=== PATIENT | male | born 1955 | race Caucasian/White ===

== ENCOUNTER 2022-07-13 15:05 | Inpatient (IN) | payer BC, MEDICARE, SELFPAY ==
[2022-07-13 15:13] VITALS: BP 133/85; PULSE 89; RESP 24; TEMP 36.1; O2SAT 100; BMI 22.2
--- NOTE | 2022-07-13 15:41 | ED.ABDPAIN ---
HPI - Abdominal Pain General Time Seen by Provider: 15:41 Date Seen: 07/13/22 Chief Complaint: Abdominal Pain Stated Complaint: Abdominal pain Time Seen by Provider: 07/13/22 15:35 Source: patient and RN notes reviewed Mode of arrival: ambulatory Limitations: no limitations History of Present Illness HPI narrative: Patient is a 67-year-old male coming in with abdominal pain. I come into the room and he is late on his right side on the end of the ER bed curled up. He states he has found little comfort that way. This started about 3 days ago. He is still having bowel movements and passing gas. He is hungry but afraid to eat, worried that there could be an obstruction. There has been some brief waves of what sounds like nausea. No respiratory symptoms. He has maybe urinating a little bit more frequently but no dysuria or hematuria. No fevers. His notes all he wants to do is lie on the floor. He is adamant that this is not coming from his back. He does feel that the right flank area but it seems to radiate from the abdomen into the right flank. He has never had any kidney stones but his daughter does. He has had 18 in of his colon removed and his appendix at that time for ulcerative colitis. He states it was obstructed. His pain is quite severe at this time. MD elicited complaint: abdominal pain Related Data Home Medications Medication Instructions Recorded Confirmed No Known Home Medications 07/13/22 07/13/22 Allergies Allergy/AdvReac Type Severity Reaction Status Date / Time No Known Drug Allergies Allergy Verified 07/13/22 17:26 Review of Systems Status of ROS Reports: 6 or more systems reviewed and unremarkable except as noted in History and below [facility] Medical History (Updated 07/13/22 @ 20:36 by Eddie Ji MD) Crohn's disease (regional enteritis) ?K50.90 - Crohn's disease, unspecified, without complications (ICD-10) Surgical History (Updated 07/13/22 @ 20:36 by Eddie Ji MD) History of bowel resection ?Z90.49 - Acquired absence of other specified parts of digestive tract (ICD-10) Exam Const: Vital Signs, click to edit/add: Vital Signs - 24 hr 07/13/22 15:13 07/13/22 15:53 07/13/22 17:40 Temperature 97.0 F L Pulse Rate [Pulse Oximeter] 89 92 Respiratory Rate 24 Blood Pressure [[facility]] 133/85 122/79 Pulse Oximetry 100 97 97 Documenting provider has reviewed patient's vital signs: yes Common normals: no apparent distress, average body habitus, oriented x3, no limitations, healthy appearing and alert General appearance: cooperative, comfortable (Seems mostly comfortable while I am in there with him), well kempt and well developed HENMT: Common normals: normocephalic, head/scalp atraumatic, hearing grossly normal bilaterally, external nose normal and moist oral mucous membranes Head and scalp: normocephalic and atraumatic Nose: external nose normal Eye: Common normals: PERRL, EOMs intact bilaterally, conjunctivae normal and no scleral icterus Conjunctiva: conjunctiva(e) normal Pupil: PERRL Neck & C-Spine: Common normals: full ROM, no lymphadenopathy, supple, no meningeal signs, no JVD and thyroid normal Thyroid: thyroid normal Chest: Common normals: inspection of chest normal and palpation of chest normal Resp: Common normals: normal respiratory effort, no retractions, no use of accessory muscles and clear to auscultation bilaterally Auscultation: clear to auscultation bilaterally Cardio: Common normals: no JVD, regular rate, regular rhythm, S1 normal heart sound, S2 normal heart sound, no gallops, no clicks, no murmurs and no rub Rate: regular rate Rhythm: regular rhythm Heart sounds: S1 normal and S2 normal GI: Common normals: Normal to inspection, nondistended, normoactive bowel sounds present, soft to palpation, non-tender, no hepatosplenomegaly and no masses Palpation: soft and no hepatosplenomegaly Other: No active abdominal pain at this time but he states he has gotten a little relief. He does have right CVA tenderness. Back & Pelvis: Common normals: thoracic and lumbar spine normal to inspection and no thoracic nor lumbar tenderness Extremity: Common normals: normal to inspection and no pedal edema Neuro: Common normals: oriented x3, CN's II-XII intact bilaterally, moves all extremities, no focal motor deficits and no sensory deficits noted Sensorium/orientation: alert Meningeal signs: no meningeal signs Psych: Appearance: well kempt Course Course Hospital Course: Patient is describing abdominal pain. This certainly could be intra-abdominal and could be urinary like kidney stones, possible partial small-bowel obstruction or inflammatory disease. We will proceed with getting him some pain medicines with 4 mg IV morphine, cover nausea with 4 mg IV Zofran and will initiate a L of IV fluids. Will get a full complement of labs including urinalysis. We are going to proceed with CT abdomen pelvis with IV contrast to further delineate any intra-abdominal pathology. Reevaluation(s) Reevaluation #1: Have reviewed patient's CT with him. Have provided a copy. We discussed the splenomegaly in lymphadenopathy, possible small-bowel obstruction at the ileum from same lymph 0 pleura fatigue of disease that is seen. He also does have a kidney stone on the right side, it is 5 mm. There are no beds in any of the [facility], none at [facility] [place] or their system. Unfortunately, with both of these things going on, prior to the current issues with hospital transfers in shortage is of beds, would likely have sent him somewhere but cannot do so tonight. Reviewed with them that I had spoken to our surgeon who recommended observation here. He may have to follow up outpatient with Urology or if he has emergency issues such is urosepsis from this, would need emergent transfer. Again, at this time there are no beds in he has no evidence of infection. We will place him on IV fluids, allow clear liquids, treat pain and observe him. I did subsequently speak with Dr. Ji our hospitalist whom is in agreement to assume care. Did ask patient in he has not followed with any GI specialist since after surgery, he has had no issues today. He has not been on any medicines or immunosuppressive so for any inflammatory bowel disease. Time: 19:53 Consultations Consultation #1: Reviewed case with her surgeon Dr. Hummel. Unfortunately there are no beds at any surrounding facilities with higher level of care. Thus, discussed management. She thinks we should place on observation, IV fluids, allow clear liquids. Difficult to say what is causing his pain or possibly maybe both issues on his CT are. I will be contacting the hospitalist Dr Ji. Time: 19:21 Vital Signs Vital signs: Initial Vital Signs Temperature 97.0 F L 07/13/22 15:13 Temperature Source Temporal Artery Scan 07/13/22 15:13 Pulse Rate 89 07/13/22 15:13 Respiratory Rate 24 07/13/22 15:13 Blood Pressure 133/85 07/13/22 15:13 Blood Pressure Mean 101 07/13/22 15:13 Blood Pressure Position Sitting 07/13/22 15:13 Pulse Oximetry 100 07/13/22 15:13 Vital Signs Temperature 97.0 F L 07/13/22 15:13 Pulse Rate 89 07/13/22 15:13 Respiratory Rate 24 07/13/22 15:13 Blood Pressure 133/85 07/13/22 15:13 Pulse Oximetry 100 07/13/22 15:13 Temperature 97.0 F L 07/13/22 15:13 Pulse Rate 92 07/13/22 17:40 Respiratory Rate 24 07/13/22 15:13 Blood Pressure 122/79 07/13/22 17:40 Pulse Oximetry 97 07/13/22 17:40 MDM - Abdominal Pain Lab Data Attestation: I reviewed the patient's lab results. Labs: Lab Results 07/13/22 07/13/22 Range/Units 16:10 16:42 WBC 6.08 (4.50-11.00) K/uL RBC 4.56 (4.30-5.90) m/uL Hgb 12.7 L (13.5-17.5) gm/dL Hct 39.0 (37.0-53.0) % MCV 86 (80-100) fL MCH 28 (26-34) pg MCHC 33 (32-36) gm/dL RDW Coeff of Waldemar 14.3 (11.5-15.5) % Plt Count 240 (140-440) K/uL Neut % (Auto) 79.3 H (42.0-72.0) % Lymph % (Auto) 12.3 L (20-44) % Burnett % (Auto) 5.9 (0.0-11.0) % Eos % (Auto) 1.2 (0.0-7.0) % Baso % (Auto) 0.8 (0.0-3.0) % Neut # (Auto) 4.80 (1.7-7.0) K/uL Lymph # (Auto) 0.70 L (0.90-2.90) K/uL Burnett # (Auto) 0.40 (0.00-0.90) K/UL Eos # (Auto) 0.07 (0.00-0.50) K/uL Baso # (Auto) 0.05 (0.00-0.30) K/uL Sodium 138 (135-149) mmol/L Potassium 4.5 (3.6-5.1) mmol/L Chloride 102 (96-114) mmol/L Carbon Dioxide 30 (20-32) mmol/L BUN 23 (7-30) mg/dL Creatinine 1.9 H (0.5-1.5) mg/dL Estimated Creat Clear 36.31 Estimated GFR 38 ml/min Glucose 116 H (60-115) mg/dL Lactate Cancelled Calcium 10.0 (8.4-10.6) mg/dL Total Bilirubin 0.9 (0.1-1.5) mg/dL AST 26 (12-35) U/L ALT 22 (4-50) U/L Alkaline Phosphatase 102 (40-150) U/L C-Reactive Protein 2.7 H (0.5-1.0) mg/dL Total Protein 6.3 (6.0-8.3) g/dL Albumin 4.3 (3.3-5.0) g/dL Urine Color Maricruz A (Yellow) Urine Appearance Cloudy A (Clear) Urine pH 6.0 (5.0-8.5) Ur Specific Harmony 1.020 (1.000-1.030) Urine Protein 1+ A (Negative) Urine Glucose (UA) Negative (Negative) Urine Ketones Trace A (Negative) Urine Blood 3+ A (Negative) Urine Nitrite Negative (Negative) Urine Bilirubin Negative (Negative) Urine Urobilinogen 0.2 (0.2-1.0) Ur Leukocyte Esterase Negative (Negative) Urine RBC 10-25 A (0-2) Urine WBC 0-2 (0-5) Ur Squamous Epith Cells Few (None-Few) Urine Bacteria None (None) Imaging Data CT scan - abdomen: Attestation: I have reviewed the pertinent imaging results. Radiologist's impression: Patient: DARLENE MCLEOD Facility:?[facility] [place] Patient ID:?[id number] Site Patient ID:?[id number]. Site :?[id number] Study:?CT Abdomen/Pelvis 74CC ISOVUE 370-07/13/2022 5:37:12 PM Ordering Physician:Noam Eugene Final Report: INDICATION: Severe right-sided abdominal pain.. TECHNIQUE: CT abdomen and pelvis acquired with 100 cc Omnipaque 350 IV contrast. COMPARISON: None. FINDINGS: Lower chest: Unremarkable. Liver: Too small to characterize hypodensity in the right hepatic lobe (2/51), likely cysts. Gallbladder and bile ducts: Unremarkable. No stones or inflammation. No biliary dilatation. Pancreas: Unremarkable. No mass or inflammation. Spleen: Splenomegaly is noted. Adrenal glands: Unremarkable. No nodules. Kidneys: 5 millimeter stone at the distal right UVJ with proximal moderate to severe hydroureteronephrosis. Mildly delayed nephrogram in the right kidney. Left kidney demonstrates multiple nonobstructing stones, largest measuring approximately 6 millimeters in diameter in the interpolar region (2/40) adjacent simple appearing renal cysts. No left hydronephrosis or hydroureter. GI tract: Small hiatal hernia thickening at the terminal ileum with proximal mildly dilated loops of small bowel with fecalization of the intraluminal contents (2/102). This is likely related to at least partial obstruction in this region.. Normal appendix. Vasculature: Abdominal aorta is normal in caliber. Mesenteric arteries are patent. Lymph nodes: Severe diffuse lymphadenopathy throughout the abdomen and retroperitoneum. Peritoneum/Abdominal Wall: Unremarkable. No sign of mass or infiltration. No free air or significant free fluid. Pelvis: Prostatomegaly with coarse prostatic calcifications. Bladder is unremarkable. Bones: Unremarkable for age. IMPRESSION: 5 millimeter stone of the distal right UVJ with proximal moderate to severe hydroureteronephrosis. Splenomegaly and diffuse lymphadenopathy likely related to lymphoproliferative disorder. Thickening and narrowing at the terminal ileum possibly related to the same lymphoproliferative disorder with resulting partial obstruction with mildly dilated loops of small bowel proximal to this region. Please note that all CT scans at this facility use dose modulation, iterative reconstruction, and/or weight-based dosing when appropriate to reduce radiation dose to as low as reasonably achievable. Dictated by Alexis Grant MD @ 07/13/2022 7:16:06 PM (Electronic Signature) Discharge Plan Discharge Clinical Impression: Abdominal lymphadenopathy, Hydronephrosis with urinary obstruction due to renal calculus, Splenomegaly, Partial small bowel obstruction Patient Disposition: Admitted As Inpatient Condition: Stable Prescriptions: No Action No Known Home Medications
[2022-07-13 15:53] VITALS: O2SAT 97
--- NOTE | 2022-07-13 15:53 | CRLHL7_ITS ---
For Patients: As a result of the Century Cures Act, medical imaging exams and procedure reports are released immediately into your electronic medical record. You may view this report before your referring provider. If you have questions, please contact your health care provider. INDICATION: Severe right-sided abdominal pain.. TECHNIQUE: CT abdomen and pelvis acquired with 100 cc Omnipaque 350 IV contrast. COMPARISON: None. FINDINGS: Lower chest: Unremarkable. Liver: Too small to characterize hypodensity in the right hepatic lobe (2/51), likely cysts. Gallbladder and bile ducts: Unremarkable. No stones or inflammation. No biliary dilatation. Pancreas: Unremarkable. No mass or inflammation. Spleen: Splenomegaly is noted. Adrenal glands: Unremarkable. No nodules. Kidneys: 5 millimeter stone at the distal right UVJ with proximal moderate to severe hydroureteronephrosis. Mildly delayed nephrogram in the right kidney. Left kidney demonstrates multiple nonobstructing stones, largest measuring approximately 6 millimeters in diameter in the interpolar region (2/40) adjacent simple appearing renal cysts. No left hydronephrosis or hydroureter. GI tract: Small hiatal hernia thickening at the terminal ileum with proximal mildly dilated loops of small bowel with fecalization of the intraluminal contents (2/102). This is likely related to at least partial obstruction in this region.. Normal appendix. Vasculature: Abdominal aorta is normal in caliber. Mesenteric arteries are patent. Lymph nodes: Severe diffuse lymphadenopathy throughout the abdomen and retroperitoneum. Peritoneum/Abdominal Wall: Unremarkable. No sign of mass or infiltration. No free air or significant free fluid. Pelvis: Prostatomegaly with coarse prostatic calcifications. Bladder is unremarkable. Bones: Unremarkable for age. IMPRESSION: 5 millimeter stone of the distal right UVJ with proximal moderate to severe hydroureteronephrosis. Splenomegaly and diffuse lymphadenopathy likely related to lymphoproliferative disorder. Thickening and narrowing at the terminal ileum possibly related to the same lymphoproliferative disorder with resulting partial obstruction with mildly dilated loops of small bowel proximal to this region. Please note that all CT scans at this facility use dose modulation, iterative reconstruction, and/or weight-based dosing when appropriate to reduce radiation dose to as low as reasonably achievable. Dictated by Alexis Grant MD @ 07/13/2022 7:16:06 PM (Electronically Signed)
[2022-07-13] MEDS: MORPHINE 4 MG/ML INJ IVP (16:20)
[2022-07-13] MEDS: ONDANSETRON 2 MG/ML inj 4 MG IVP (16:20)
[2022-07-13] MEDS: 0.9 % SODIUM CHLORIDE 1000 ml 1,000 ML 500 ML IV (16:20)
[2022-07-13 16:23] LABS: Basophils Absolute Auto 0.05 K/uL (0.00-0.30); Basophils Percent Auto 0.8 % (0.0-3.0); Eosinophils Absolute Auto 0.07 K/uL (0.00-0.50); Eosinophils Percent Auto 1.2 % (0.0-7.0); Hemoglobin* 12.7 gm/dL (13.5-17.5); Immature Granulocytes Abs Auto 0.03 K/uL (0.00-0.30); Immature Granulocytes Pct Auto 0.5 %; Lymphocytes Percent Auto 12.3 % (20-44); Mean Corpuscular HGB Conc 33 gm/dL (32-36); Mean Corpuscular Hemoglobin 28 pg (26-34); Mean Corpuscular Volume 86 fL (80-100); Monocytes Percent Auto 5.9 % (0.0-11.0); Neutrophils Percent Auto 79.3 % (42.0-72.0); Platelet Count* 240 K/uL (140-440); RDW Coefficient of Variation % 14.3 % (11.5-15.5); Red Blood Count 4.56 m/uL (4.30-5.90); White Blood Count* 6.08 K/uL (4.50-11.00)
[2022-07-13 16:52] LABS: Appearance Urine Cloudy (Clear); Bilirubin Urine Negative (Negative); Blood Urine 3+ (Negative); Color Urine Amber (Yellow); Glucose Urine Negative (Negative); Ketones Urine Trace (Negative); Leukocyte Esterase Urine Negative (Negative); Nitrite Urine Negative (Negative); Protein Urine 1+ (Negative); Urobilinogen Urine 0.2 (0.2-1.0)
[2022-07-13 17:17] LABS: Squamous Epithelial Cell Urine Few (None-Few); WBC Urine 0-2 (0-5)
[2022-07-13 17:18] LABS: Albumin* 4.3 g/dL (3.3-5.0); Chloride* 102 mmol/L (96-114); Potassium* 4.5 mmol/L (3.6-5.1); Sodium* 138 mmol/L (135-149)
[2022-07-13 17:19] LABS: Slide Review Reflex No
[2022-07-13 17:20] LABS: Creatinine* 1.9 mg/dL (0.5-1.5); Est. Creatinine Clearance* 36.31; Estimated Glomerular Filt Rate 38 ml/min
[2022-07-13 17:21] LABS: Alanine Aminotransferase* 22 U/L (4-50); Alkaline Phosphatase* 102 U/L (40-150); Aspartate Amino Transferase* 26 U/L (12-35); Bilirubin Total* 0.9 mg/dL (0.1-1.5); Blood Urea Nitrogen* 23 mg/dL (7-30); Carbon Dioxide* 30 mmol/L (20-32); Glucose* 116 mg/dL (60-115); Total Protein* 6.3 g/dL (6.0-8.3)
[2022-07-13 17:24] LABS: C Reactive Protein* 2.7 mg/dL (0.5-1.0)
[2022-07-13 17:40] VITALS: BP 122/79; PULSE 92; O2SAT 97
--- NOTE | 2022-07-13 20:37 | PM.IMHP1 ---
Hospitalist- H&P: HPI History of Present Illness Date Seen: 07/13/22 Chief complaint: Abdominal pain Narrative: Dandre Renteria is a 67 year old male with remote history of bowel resection for Crohn's disease who presents with a 3 day history of right lower quadrant pain. Patient reports that the pain has been coming for a few hours then going away for a few hours. Nothing he does seems to make it worse or better. He has had a decreased appetite but no vomiting and he has been able to eat. He has had normal if smaller stools without blood or melena. Urination has been normal without blood or pain or frequency. No fever. No previous episodes of similar symptoms. No previous history of small-bowel obstruction or kidney stone. Patient notes that he does not routinely get medical care and has been only seen by doctors rarely for urgent problems. Review of Systems Narrative: Review of systems is unremarkable except as noted above [facility] Medical History (Updated 07/13/22 @ 20:47 by Eddie Ji MD) Stage 3 chronic kidney disease ?N18.30 - Chronic kidney disease, stage 3 unspecified (ICD-10) Crohn's disease (regional enteritis) ?K50.90 - Crohn's disease, unspecified, without complications (ICD-10) Surgical History History of bowel resection ?Z90.49 - Acquired absence of other specified parts of digestive tract (ICD-10) Family History (Updated 07/13/22 @ 20:41 by Eddie Ji MD) Sister Crohn's disease Aunt Crohn's disease Father Diabetes Social History (Updated 07/13/22 @ 20:42 by Eddie Ji MD) Narrative: He lives in [place] with his , Percy, and his son, Percy. They along with his daughter Nirali are healthcare power of county attorney. Code status is DNR. He is retired from doing maintenance work. He does not smoke. He rarely drinks alcohol. No recreational drug use. Meds Home Medications and Allergies Home Medications Medication Instructions Recorded Confirmed Type No Known Home Medications 07/13/22 07/13/22 History Home Medication Comments: No home medication Allergies Allergy/AdvReac Type Severity Reaction Status Date / Time No Known Drug Allergies Allergy Verified 07/13/22 17:26 Exam Narrative: Exam Narrative: He is alert and appears in no distress. He reports his pain is currently better. Eyes normal. Oropharynx normal. Neck is supple without mass or adenopathy. Respirations are clear to auscultation. Cardiovascular: S1, S2, regular rate and rhythm. Abdomen: Bowel sounds active. Abdomen is soft without tenderness or mass. External genitalia normal. Extremities normal. He has intact pedal pulses. He moves all 4 extremities well. No edema. No rash. Const: Vital Signs, click to edit/add: Vital Signs - 24 hr 07/13/22 15:13 07/13/22 15:53 07/13/22 17:40 Temperature 97.0 F L Pulse Rate [Pulse Oximeter] 89 92 Respiratory Rate 24 Blood Pressure [Ri ght Upper Arm] 133/85 122/79 Pulse Oximetry 100 97 97 Documenting provider has reviewed patient's vital signs: yes Hospitalist - H&P: Result Labs Labs: Short CBC 07/13/22 Range/Units 16:10 WBC 6.08 (4.50-11.00) K/uL Hgb 12.7 L (13.5-17.5) gm/dL Hct 39.0 (37.0-53.0) % Plt Count 240 (140-440) K/uL BMP 07/13/22 16:10 Sodium 138 Potassium 4.5 Chloride 102 Carbon Dioxide 30 BUN 23 Creatinine 1.9 H Glucose 116 H Calcium 10.0 Liver Function 07/13/22 Range/Units 16:10 Total Bilirubin 0.9 (0.1-1.5) mg/dL AST 26 (12-35) U/L ALT 22 (4-50) U/L Alkaline Phosphatase 102 (40-150) U/L Albumin 4.3 (3.3-5.0) g/dL Urine 07/13/22 Range/Units 16:42 Urine Color Maricruz A (Yellow) Urine Appearance Cloudy A (Clear) Urine pH 6.0 (5.0-8.5) Ur Specific Moss 1.020 (1.000-1.030) Urine Protein 1+ A (Negative) Urine Glucose (UA) Negative (Negative) Assessment and Plan Assessment and plan (1) Hydronephrosis with urinary obstruction due to renal calculus: Problem comment: His left lower quadrant pain is most likely renal colic from his 5 mm stone in his distal ureter. Attempts to transfer for urologic evaluation were unsuccessful. He has moderate chance of successfully passing the stone without intervention. Due to history of lymphoproliferative disorder I will check a uric acid level with concern about hyperuricemia. Status: Acute (2) Partial small bowel obstruction: Problem comment: Probably related to lymphadenopathy. Mildly symptomatic at this point. Continue to monitor. Status: Acute (3) Stage 3 chronic kidney disease: Problem comment: Uncertain if this is acute or chronic kidney disease. No previous history of kidney disease. No previous history of monitoring for kidney disease. Will monitor while hospitalized. Status: Acute (4) Splenomegaly: Status: Acute (5) Abdominal lymphadenopathy: Problem comment: Lymphoproliferative disorder. Consider Oncology consult to determine next steps of evaluation. Status: Acute Plan Patient is admitted to the hospital for monitoring of small-bowel obstruction and managing pain from kidney stone. Hopefully kidney stone will pass spontaneously. No beds are available at tertiary care facilities with Urology. Will need outpatient workup for lymphoproliferative disorder. Continue trial of feeding to see if he can tolerate food with his partial bowel obstruction. Total time spent is 60 minutes, 35 minutes in coordination of care discussing with patient other providers ongoing evaluation management of kidney stones and lymphoproliferative disorder
[2022-07-13 21:13] VITALS: BP 142/75; PULSE 94; RESP 20; TEMP 36.7; O2SAT 97; BMI 21.2
[2022-07-13] MEDS: ENOXAPARIN 40 MG/0.4 ML INJ SUBCUT (22:27)
[2022-07-13] MEDS: LACTATED RINGERS 1000 ML 1,000 ML 125 ML IV (22:27)
[2022-07-13] MEDS: SODIUM CHLORIDE 0.9 % (FLUSH) 10 ML SYRINGE 5 ML IVF (22:27)
[2022-07-14 03:30] VITALS: BP 111/69; PULSE 82; RESP 16; TEMP 36.7; O2SAT 94
[2022-07-14] MEDS: ACETAMINOPHEN 325 MG TABLET 650 MG PO (03:45)
--- NOTE | 2022-07-14 05:27 | PC.NURSE ---
Patient to the unit at 2112 accompanied by . Denies abd pain. Independent in room. Denies passing gas. Tylenol administered for headache. Afebrile. Tolerating water and crackers. Denies N/V. Voiding.
[2022-07-14] MEDS: LACTATED RINGERS 1000 ML 1,000 ML 125 ML IV (05:33)
[2022-07-14 07:00] VITALS: BP 113/71; PULSE 76; RESP 18; TEMP 36.7; O2SAT 98
[2022-07-14 07:39] LABS: Basophils Percent Auto 1.3 % (0.0-3.0); Eosinophils Percent Auto 5.7 % (0.0-7.0); Hematocrit 36.7 % (37.0-53.0); Hemoglobin* 11.7 gm/dL (13.5-17.5); Immature Granulocytes Pct Auto 0.5 %; Lymphocytes Percent Auto 29.2 % (20-44); Mean Corpuscular HGB Conc 32 gm/dL (32-36); Mean Corpuscular Hemoglobin 28 pg (26-34); Mean Corpuscular Volume 87 fL (80-100); Monocytes Percent Auto 9.8 % (0.0-11.0); Neutrophils Percent Auto 53.5 % (42.0-72.0); Platelet Count* 237 K/uL (140-440); RDW Coefficient of Variation % 14.4 % (11.5-15.5); Red Blood Count 4.21 m/uL (4.30-5.90); White Blood Count* 3.87 K/uL (4.50-11.00)
[2022-07-14 07:43] LABS: Slide Review Reflex No
[2022-07-14 07:52] LABS: Chloride* 100 mmol/L (96-114); Sodium* 137 mmol/L (135-149)
[2022-07-14 07:54] LABS: Creatinine* 1.7 mg/dL (0.5-1.5); Est. Creatinine Clearance* 39.04; Estimated Glomerular Filt Rate 44 ml/min
[2022-07-14 07:55] LABS: Blood Urea Nitrogen* 20 mg/dL (7-30); Calcium* 9.2 mg/dL (8.4-10.6); Carbon Dioxide* 32 mmol/L (20-32); Glucose* 93 mg/dL (60-115)
--- NOTE | 2022-07-14 09:05 | REH.OT ---
OT/PT: Orders received. Per MD in rounds, patient does not have skilled IP OT/PT needs. Will discontinue order.
--- NOTE | 2022-07-14 13:29 | PM.DS1 ---
DS: Providers Provider Time Seen by Provider: 11:00 Date Seen: 07/14/22 Date of admission: 07/13/22 21:10 Primary care physician: Not a Local Provider Admitting Clinician: Dr Margy LOPEZ Consults: 07/13/22 20:28 Consult to Respiratory Therapy [CONS] Routine Comment: Reason(s) for RT Consult:: Consult Consult to Sales Operations [CONS] Routine Comment: Reason for Consult:: Discharge Planning Needs 07/13/22 20:32 Consult to Physician [CONS] Urgent Comment: Consulting Provider: Amanuel Hummel Has provider been notified: Yes Attending Physician on discharge: Jason Mahoney MD Date of Discharge: 07/14/22 DS: Summary Hospital Course Hospital Course: Chief complaint: Abdominal pain Narrative: Dandre Renteria is a 67 year old male with remote history of bowel resection for Crohn's disease who presents with a 3 day history of right lower quadrant pain.? Patient reports that the pain has been coming for a few hours then going away for a few hours.? Nothing he does seems to make it worse or better.? He has had a decreased appetite but no vomiting and he has been able to eat.? He has had normal if smaller stools without blood or melena.? Urination has been normal without blood or pain or frequency.? No fever.? No previous episodes of similar symptoms.? No previous history of small-bowel obstruction or kidney stone. Patient notes that he does not routinely get medical care and has been only seen by doctors rarely for urgent problems. Hospital Course He was admitted and treated conservatively. He had a BM on morning of 5 and continue to pass gas. He had no abdominal or flank pain. He had no nausea or vomiting. No abdominal distention. His case was discussed with general surgery who felt he did not need intra abdominal biopsy to work up intraabdominal lymphadenopathy. Patient requested to be discharged on date of discharge. He has been instructed to follow up with his PCP who can continue workup of Splenomegaly and diffuse lymphadenopathy likely related to lymphoproliferative disorder, and possible referral to Oncology and Urology. Of note the patient does not seek routine medical care and does not have routine PCP. PCP referral made. He will need close outpatient follow up for abnormal CT AP findings below. This was reviewed with patient. He also does not have a GI provider managing his Crohn's dx. Appointment made with Dr. Singh [facility] 5 millimeter stone of the distal right UVJ with proximal moderate to severe hydroureteronephrosis. Splenomegaly and diffuse lymphadenopathy likely related to lymphoproliferative disorder. Thickening and narrowing at the terminal ileum possibly related to the same lymphoproliferative disorder with resulting partial obstruction with mildly dilated loops of small bowel proximal to this region. Time Spent with Patient Time attestation: Total time spent providing and/or coordinating discharge services: Exam Narrative: Exam Narrative: Gen: no acute distress HEENT: NCAT EOMI mmm Neck: Supple CV: RRR normal s1 s2 Lungs: CTAB Abd: Soft,nt, nd Neuro: Alert, oriented, CN grossly intact; nonfocal screening exam Psych: appropriate affect MSK: age appropriate muscle mass Skin; Warm, dry no rash on face Const: Vital Signs, click to edit/add: Vital Signs - 24 hr 07/13/22 15:13 07/13/22 15:53 07/13/22 17:40 Temperature 97.0 F L Pulse Rate [Pulse Oximeter] 89 92 Respiratory Rate 24 Blood Pressure [Le ft Arm] Blood Pressure [Ri ght Upper Arm] 133/85 122/79 Pulse Oximetry 100 97 97 Oxygen Delivery Me thod 07/13/22 21:13 07/13/22 21:13 07/14/22 03:30 Temperature 98.0 F 98.0 F 98.1 F Pulse Rate [Pulse Oximeter] 94 94 82 Respiratory Rate 20 20 16 Blood Pressure [Le ft Arm] 142/75 H 142/75 H 111/69 Blood Pressure [Ri ght Upper Arm] Pulse Oximetry 97 97 94 Oxygen Delivery Me thod Room Air Room Air Room Air 07/14/22 07:00 Temperature 98.0 F Pulse Rate [Pulse Oximeter] 76 Respiratory Rate 18 Blood Pressure [Le ft Arm] 113/71 Blood Pressure [Ri ght Upper Arm] Pulse Oximetry 98 Oxygen Delivery Me thod Room Air DS: Data Data Completed and Pending Labs on day of discharge: Labs from last 24 hours 07/14/22 07/13/22 07/13/22 07:10 16:42 16:10 WBC 3.87 L 6.08 RBC 4.21 L 4.56 Hgb 11.7 L 12.7 L Hct 36.7 L 39.0 MCV 87 86 MCH 28 28 MCHC 32 33 RDW Coeff of Waldemar 14.4 14.3 Plt Count 237 240 Neut % (Auto) 53.5 79.3 H Lymph % (Auto) 29.2 12.3 L [place] % (Auto) 9.8 5.9 Eos % (Auto) 5.7 1.2 Baso % (Auto) 1.3 0.8 Neut # (Auto) 2.10 4.80 Lymph # (Auto) 1.10 0.70 L [place] # (Auto) 0.40 0.40 Eos # (Auto) 0.20 0.07 Baso # (Auto) 0.10 0.05 Sodium 137 138 Potassium 4.0 4.5 Chloride 100 102 Carbon Dioxide 32 30 BUN 20 23 Creatinine 1.7 H 1.9 H Estimated Creat Clear 39.04 36.31 Estimated GFR 44 38 Glucose 93 116 H Lactate Cancelled Calcium 9.2 10.0 Total Bilirubin 0.9 AST 26 ALT 22 Alkaline Phosphatase 102 C-Reactive Protein 2.7 H Total Protein 6.3 Albumin 4.3 Urine Color [place] A Urine Appearance Cloudy A Urine pH 6.0 Ur Specific [place] 1.020 Urine Protein 1+ A Urine Glucose (UA) Negative Urine Ketones Trace A Urine Blood 3+ A Urine Nitrite Negative Urine Bilirubin Negative Urine Urobilinogen 0.2 Ur Leukocyte Esterase Negative Urine RBC 10-25 A Urine WBC 0-2 Ur Squamous Epith Cells Few Urine Bacteria None Preliminary micro results at discharge 07/13/22 19:55 Urine Culture - Preliminary Urine,Clean Catch NO GROWTH AFTER 24 HOURS Discharge Plan Discharge Disposition: Home, Self-Care Date of Admission: 07/13/22 21:10 Consulting Providers: Amanuel Hummel Primary Care Provider: Provider,Not a Local Condition: Stable Anticipated Discharge Date/Time: 07/14/22 13:19 Discharge Medications: No Action No Known Home Medications Discharge Orders: Discharge Order (Routine); Ordered 07/14/22 Ordered By: Jason Mahoney Patient Education: Abdominal Pain (DC) Activity Level: Activity as Tolerated Discharge Diet: Other Diet Detail: Resume previous home diet Follow Up Appointments: Provider,Not a Local [Primary Care Provider] - 07/17/22 8:45 am ( Appointment made with Dr. Singh [facility]) Forms: [employer] Info Instructions
== END 2022-07-14 14:28 | disposition home or self-care (01) | DRG 465 ==
LOC: ED 20:36 → MEDSURG 07-14 07:31
PROVIDERS: Admitting Provider Family Medicine; Emergency Provider Family Medicine; Visit Provider Family Medicine
DX: N13.2 Hydronephrosis with renal and ureteral calculous obstruction (principal); D47.9 Neoplasm of uncertain behavior of lymphoid, hematopoietic and related tissue, unspecified; K56.600 Partial intestinal obstruction, unspecified as to cause; K50.90 Crohn's disease, unspecified, without complications; R59.1 Generalized enlarged lymph nodes; R16.1 Splenomegaly, not elsewhere classified; R10.31 Right lower quadrant pain; N18.30 Chronic kidney disease, stage 3 unspecified
CPT/HCPCS: 36415; 74177; 80048; 80053; 81001; 83605; 84550; 84560; 85025; 86140; 87086; 94761; 99284; 99285; A9270; J1650; J2270; J2405; J7030; J7120; Q9967

== ENCOUNTER 2022-10-14 14:16 | Emergency (ER) | payer BC, MEDICARE, SELFPAY ==
[2022-10-14 14:22] VITALS: BP 151/95; PULSE 93; RESP 22; TEMP 36.6; O2SAT 94; BMI 22.2
--- NOTE | 2022-10-14 14:35 | CRLHL7_ITS ---
For Patients: As a result of the Century Cures Act, medical imaging exams and procedure reports are released immediately into your electronic medical record. You may view this report before your referring provider. If you have questions, please contact your health care provider. INDICATION: Left-sided flank pain since earlier today. TECHNIQUE: CT abdomen and pelvis without contrast. COMPARISON: Report only from 07/13/2022 CT. Images not available to review at time of study interpretation. FINDINGS: Core Man CT images: Nonobstructive bowel gas pattern. Lower chest: Scattered pulmonary opacities at the imaged bilateral lower lobes, lingula and right middle lobe, suspicious for multifocal pneumonia. No pleural effusions. Liver: Unremarkable. Spleen: Spleen markedly enlarged, measuring 22.2 cm in craniocaudal dimension on series 4, image 61. No perisplenic fluid. Pancreas: Unremarkable. Gallbladder and bile ducts: Unremarkable. Adrenal glands: Unremarkable. Kidneys: Bilateral radiodense renal calculi. Delayed left nephrogram. There is moderate fullness to the left renal collecting system and proximal left ureter. Obstructing calculus in the mid left ureter, estimated size 8.7 mm on series 4, image 59. Additional smaller distal left ureteral calculi identified on series 2, image 124 and image 127 just proximal to the UVJ. GI tract: Unremarkable. No bowel obstruction, free fluid or free air. Appendix not clearly identified in the right lower abdominal quadrant. Vascular structures: Unremarkable. Lymph nodes: Scattered enlarged kolby hepatis and upper abdominal periaortic lymphadenopathy. Enlarged left external iliac chain lymph node on series 2, image 127. Bilateral enlarged inguinal lymph nodes. Miscellaneous: Unremarkable. No free air or significant free fluid. Pelvic Organs: Prostate gland enlarged. No bladder wall calcifications. Bones: Unremarkable for age. IMPRESSION: 1. Bilateral nephrolithiasis with at least 3 obstructing left ureteral calculi. Largest calculus in the left ureter measures 8.7 mm on series 4, image 59. Two smaller calculi in the more distal ureter just proximal to the UVJ. 2. Mild delayed left nephrogram with moderate hydronephrosis and distention of the proximal left ureter. 3. Enlarged spleen with upper abdominal, retroperitoneal, and bilateral inguinal lymphadenopathy. Findings concerning for lymphoma. 4. Multifocal pneumonia suspected at the imaged lung bases. Dictated by Nir Miller MD @ 10/14/2022 4:52:30 PM Please note that all CT scans at this facility use dose modulation, iterative reconstruction, and/or weight-based dosing when appropriate to reduce radiation dose to as low as reasonably achievable. Dictated by: Nir Miller MD @ 10/14/2022 16:54:06 (Electronically Signed)
--- NOTE | 2022-10-14 14:42 | ED_ITS ---
HPI - General Adult General Date Seen: 10/14/22 Chief complaint: Flank Pain Stated complaint: Severe back pain Time Seen by Provider: 10/14/22 14:22 Source: patient Mode of arrival: ambulatory Limitations: no limitations History of Present Illness HPI narrative: Patient is a 67-year-old male, infrequent user of Healthcare, presents with left flank and abdominal pain. He was here on July 13, at that time had a 5 mm UVJ stone, also had evidence of some ileocecal inflammation, he status post bowel resection secondary to Crohn's 40 years ago. He had evidence of a possible small-bowel obstruction and also had significant lymphadenopathy and splenomegaly, suspicious for lymphoproliferative disorder. He stayed in the hospital for a day, but then was feeling better and asked to be discharged. He was supposed to follow-up with Urology, primary care and have further evaluation for the possible lymphoproliferative disorder, however he tells me that he did not see anyone in follow-up. He says that his pain was simply gone, he presumed that he passed the stone, and until , 2 days ago he had been feeling fine. He did understand that he was supposed to follow-up for possible oncology evaluation, but says that he felt like the doctors here had ?cancer on the brain and due to a combination of concerns about cost, I think some fear of the unknown, as well as he admits just some stubbornness, he did not seek any kind of follow-up to look into that further. He has had a little nausea, no vomiting. His appetite has been okay. He denies urinary symptoms, fevers, black or bloody stools, constipation or diarrhea. He does not smoke, drinks rarely. Here today with his . Related Data Previous Rx's Medication Instructions Recorded oxycodone 5 mg tablet 5 mg PO Q4-6H PRN pain #10 tabs 10/14/22 Allergies Allergy/AdvReac Type Severity Reaction Status Date / Time No Known Drug Allergies Allergy Verified 07/13/22 17:26 Review of Systems Status of ROS: Reports: 10 or more systems reviewed and unremarkable except as noted in History and below [facility] Medical History Stage 3 chronic kidney disease ?N18.30 - Chronic kidney disease, stage 3 unspecified (ICD-10) Crohn's disease (regional enteritis) ?K50.90 - Crohn's disease, unspecified, without complications (ICD-10) Surgical History History of bowel resection ?Z90.49 - Acquired absence of other specified parts of digestive tract (ICD- 10) Family History Sister Crohn's disease Aunt Crohn's disease Father Diabetes Social History Narrative: He lives in [place] with his , Percy, and his son, Percy. They along with his daughter Nirali are healthcare power of compliance attorney. Code status is DNR. He is retired from doing maintenance work. He does not smoke. He rarely drinks alcohol. No recreational drug use. Highest level of school completed/degree received: high school graduate Smoking Status: Former smoker How often do you have a drink containing alcohol: monthly or less AUDIT-C Alcohol total score: 1 Non-prescribed substance use: denies use Caffeine: Yes (coffee) service: No Exam Narrative: Exam Narrative: Vital signs as noted above. In general, an alert, uncomfortable appearing elderly male. He is very thin. Head: Normocephalic, atraumatic. Eyes: Pupils are equal reactive. Extraocular movements are full. Conjunctivae are pale. ENT: Mucous membranes are moist. Neck: Supple without lymphadenopathy. Heart: Regular rate and rhythm. No murmur or rub. Lungs: Clear bilaterally. No increased work of breathing, crackles or wheezes. Abdomen: Soft and nondistended. No significant tenderness to palpation, no CVA tenderness. Extremities: Well perfused. No edema. No calf tenderness. Pulses intact. Neurologic: Patient is alert and oriented to person and place. Speech is fluent. Face is symmetric. Moves all extremities equally. Affect: Normal. Skin: Warm and dry. Well perfused. Const: Vital Signs, click to edit/add: Vital Signs - 24 hr 10/14/22 14:22 10/14/22 15:14 Temperature 97.8 F Pulse Rate [Pulse Oximeter] 93 90 Respiratory Rate 22 20 Blood Pressure [Le ft Upper Arm] 151/95 H Pulse Oximetry 94 99 Oxygen Delivery Me thod Room Air Room Air Documenting provider has reviewed patient's vital signs: yes Course Course Hospital Course: Review of previous records show the above-mentioned findings on CT scan. He did have stones in the left kidney at the time of his last scan and it is certainly possible knees passing another stone on the left. However, given how complicated his CT scan was couple of months ago I am going to just repeat CT with contrast so that we can get as much information as possible. Labs are pending. I have ordered 4 mg of morphine IV for pain. Labs are notable for normal white blood cell count, hemoglobin is 13.1, improved from July. Platelets are normal. Metabolic panel is notable for creatinine of 1.6, BUN is normal. LFTs are normal, CRP is 1.2. Lipase is 20. UA is notable for 10-25 red blood cells no white cells. CT scan by my read shows stones in the left ureter, 1 about 9 mm, with severe hydronephrosis. Other findings described by the radiologist include lymphadenopathy and splenomegaly, concerning for lymphoma. I have had a compa discussion with the patient about these findings. I have reviewed with him that the large stone is unlikely to pass without instrumentation and that the kidney can be damaged over time by this significant blockage. Thus, urology follow-up is very important. I have given him the phone number and asked him to call on Sunday to make a follow-up appointment. In terms of the findings concerning for lymphoma, I would again recommend that he see primary care, he says that he has seen someone at the [facility] in [place] and would be comfortable going back there. Discussed that lymphoma is often very treatable, but that by delaying this diagnosis he is is increasing the likelihood that treatment will be more difficult. He and his assure me today that he does plan to follow-up after this visit. Return at any time for severe uncontrolled pain, fevers, vomiting or other worsening. Tylenol and oxycodone recommended for pain. Vital Signs Vital signs: Initial Vital Signs Temperature 97.8 F 10/14/22 14:22 Temperature Source Temporal Artery Scan 10/14/22 14:22 Pulse Rate 93 10/14/22 14:22 Pulse Rhythm Regular 10/14/22 14:22 Respiratory Rate 22 10/14/22 14:22 Blood Pressure 151/95 H 10/14/22 14:22 Blood Pressure Mean 113 H 10/14/22 14:22 Blood Pressure Position Sitting 10/14/22 14:22 Pulse Oximetry 94 10/14/22 14:22 Oxygen Delivery Method Room Air 10/14/22 14:22 Vital Signs Temperature 97.8 F 10/14/22 14:22 Pulse Rate 93 10/14/22 14:22 Respiratory Rate 22 10/14/22 14:22 Blood Pressure 151/95 H 10/14/22 14:22 Pulse Oximetry 94 10/14/22 14:22 Oxygen Delivery Method Room Air 10/14/22 14:22 Temperature 97.8 F 10/14/22 14:22 Pulse Rate 90 10/14/22 15:14 Respiratory Rate 20 10/14/22 15:14 Blood Pressure 151/95 H 10/14/22 14:22 Pulse Oximetry 99 10/14/22 15:14 Oxygen Delivery Method Room Air 10/14/22 15:14 Medical Decision Making Lab Data Labs: Lab Results 10/14/22 10/14/22 10/14/22 Range/Units 14:45 15:09 15:55 WBC 7.75 (4.50-11.00) K/uL RBC 5.11 (4.30-5.90) m/uL Hgb 13.1 L (13.5-17.5) gm/dL Hct 41.9 (37.0-53.0) % MCV 82 (80-100) fL MCH 26 (26-34) pg MCHC 31 L (32-36) gm/dL RDW Coeff of Waldemar 16.0 H (11.5-15.5) % Plt Count 271 (140-440) K/uL Neut % (Auto) 82.4 H (42.0-72.0) % Lymph % (Auto) 7.7 L (20-44) % [place] % (Auto) 6.2 (0.0-11.0) % Eos % (Auto) 1.0 (0.0-7.0) % Baso % (Auto) 0.6 (0.0-3.0) % Neut # (Auto) 6.40 (1.7-7.0) K/uL Lymph # (Auto) 0.60 L (0.90-2.90) K/uL [place] # (Auto) 0.50 (0.00-0.90) K/UL Eos # (Auto) 0.08 (0.00-0.50) K/uL Baso # (Auto) 0.05 (0.00-0.30) K/uL Abs Immat Gran (auto) 0.16 (0.00-0.30) K/uL Imm/Tot Granulo (auto) 2.1 % Sodium 135 (135-149) mmol/L Potassium 3.8 (3.6-5.1) mmol/L Chloride 102 (96-114) mmol/L Carbon Dioxide 26 (20-32) mmol/L BUN 20 (7-30) mg/dL Creatinine 1.6 H (0.5-1.5) mg/dL Estimated Creat Clear 43.12 Estimated GFR 47 ml/min Glucose 117 H (60-115) mg/dL Lactate 2.0 H (0.5-1.9) mmol/L Calcium 9.5 (8.4-10.6) mg/dL Total Bilirubin 0.6 (0.1-1.5) mg/dL Direct Bilirubin 0.1 (0.0-0.5) mg/dL AST 27 (12-35) U/L ALT 27 (4-50) U/L Alkaline Phosphatase 132 (40-150) U/L C-Reactive Protein 1.2 H (0.5-1.0) mg/dL Total Protein 6.0 (6.0-8.3) g/dL Albumin 3.7 (3.3-5.0) g/dL Lipase 20 L (23-300) U/L Urine Color Yellow (Yellow) Urine Appearance Clear (Clear) Urine pH 5.5 (5.0-8.5) Ur Specific [place] 1.020 (1.000-1.030) Urine Protein 1+ A (Negative) Urine Glucose (UA) Negative (Negative) Urine Ketones 1+ A (Negative) Urine Blood 2+ A (Negative) Urine Nitrite Negative (Negative) Urine Bilirubin Negative (Negative) Urine Urobilinogen 0.2 (0.2-1.0) Ur Leukocyte Esterase Negative (Negative) Urine RBC 10-25 A (0-2) Urine WBC 0-2 (0-5) Ur Squamous Epith Cells Moderate A (None-Few) Calcium Oxalate Crystal Moderate A (None) Urine Bacteria None (None) Urine Mucus Few A (None) Blood Type O Positive Antibody Screen NEGATIVE 10/14/22 Range/Units 16:50 WBC (4.50-11.00) K/uL RBC (4.30-5.90) m/uL Hgb (13.5-17.5) gm/dL Hct (37.0-53.0) % MCV (80-100) fL MCH (26-34) pg MCHC (32-36) gm/dL RDW Coeff of Waldemar (11.5-15.5) % Plt Count (140-440) K/uL Neut % (Auto) (42.0-72.0) % Lymph % (Auto) (20-44) % [place] % (Auto) (0.0-11.0) % Eos % (Auto) (0.0-7.0) % Baso % (Auto) (0.0-3.0) % Neut # (Auto) (1.7-7.0) K/uL Lymph # (Auto) (0.90-2.90) K/uL [place] # (Auto) (0.00-0.90) K/UL Eos # (Auto) (0.00-0.50) K/uL Baso # (Auto) (0.00-0.30) K/uL Abs Immat Gran (auto) (0.00-0.30) K/uL Imm/Tot Granulo (auto) % Sodium (135-149) mmol/L Potassium (3.6-5.1) mmol/L Chloride (96-114) mmol/L Carbon Dioxide (20-32) mmol/L BUN (7-30) mg/dL Creatinine (0.5-1.5) mg/dL Estimated Creat Clear Estimated GFR ml/min Glucose (60-115) mg/dL Lactate 1.2 (0.5-1.9) mmol/L Calcium (8.4-10.6) mg/dL Total Bilirubin (0.1-1.5) mg/dL Direct Bilirubin (0.0-0.5) mg/dL AST (12-35) U/L ALT (4-50) U/L Alkaline Phosphatase (40-150) U/L C-Reactive Protein (0.5-1.0) mg/dL Total Protein (6.0-8.3) g/dL Albumin (3.3-5.0) g/dL Lipase (23-300) U/L Urine Color (Yellow) Urine Appearance (Clear) Urine pH (5.0-8.5) Ur Specific [place] (1.000-1.030) Urine Protein (Negative) Urine Glucose (UA) (Negative) Urine Ketones (Negative) Urine Blood (Negative) Urine Nitrite (Negative) Urine Bilirubin (Negative) Urine Urobilinogen (0.2-1.0) Ur Leukocyte Esterase (Negative) Urine RBC (0-2) Urine WBC (0-5) Ur Squamous Epith Cells (None-Few) Calcium Oxalate Crystal (None) Urine Bacteria (None) Urine Mucus (None) Blood Type Antibody Screen Discharge Plan Discharge Clinical Impression: Abdominal lymphadenopathy, Hydronephrosis with urinary obstruction due to renal calculus, Splenomegaly Patient Disposition: Home, Self-Care Condition: Improved Instructions: Ureteral Stones (ED) Additional Instructions: Tylenol 1000 mg 3 times daily. Oxycodone if needed for more severe pain. Please call on Sunday to make an appointment with Urology, . One of the 3 stones is almost 9 mm which will almost certainly not passed without instrumentation. Over time, this blockage could damage or kidney, so it is important to arrange this follow-up. If at any time you have severe uncontrolled pain, vomiting, fever or other worsening, return to the emergency department. With regard to the enlarged lymph nodes and spleen seen on CT, I would like her to follow up with Lisa in [place] to start the process of having this worked up. The radiologist also felt that you had a little bit of pneumonia in your lungs bilaterally, so I would recommend that we treat you with an antibiotic for that. Prescriptions: New oxycodone 5 mg tablet 5 mg PO Q4-6H PRN (Reason: pain) Qty: 10 0RF Follow Up/Referrals: Provider,Not a Local [Primary Care Provider] - Stand Alone Forms: [employer] Info Instructions
[2022-10-14 14:51] LABS: Basophils Absolute Auto 0.05 K/uL (0.00-0.30); Basophils Percent Auto 0.6 % (0.0-3.0); Eosinophils Absolute Auto 0.08 K/uL (0.00-0.50); Hematocrit 41.9 % (37.0-53.0); Hemoglobin* 13.1 gm/dL (13.5-17.5); Immature Granulocytes Abs Auto 0.16 K/uL (0.00-0.30); Immature Granulocytes Pct Auto 2.1 %; Lymphocytes Percent Auto 7.7 % (20-44); Mean Corpuscular HGB Conc 31 gm/dL (32-36); Mean Corpuscular Hemoglobin 26 pg (26-34); Mean Corpuscular Volume 82 fL (80-100); Monocytes Percent Auto 6.2 % (0.0-11.0); Neutrophils Percent Auto 82.4 % (42.0-72.0); Platelet Count* 271 K/uL (140-440); Red Blood Count 5.11 m/uL (4.30-5.90); White Blood Count* 7.75 K/uL (4.50-11.00)
[2022-10-14 14:53] LABS: Slide Review Reflex No
[2022-10-14] MEDS: MORPHINE 4 MG/ML INJ IVP (14:53)
[2022-10-14] MEDS: 0.9 % SODIUM CHLORIDE 500 ML 500 ML IV (15:00)
[2022-10-14 15:08] LABS: Albumin* 3.7 g/dL (3.3-5.0); Chloride* 102 mmol/L (96-114)
[2022-10-14 15:09] LABS: Potassium* 3.8 mmol/L (3.6-5.1); Sodium* 135 mmol/L (135-149)
[2022-10-14 15:11] LABS: Creatinine* 1.6 mg/dL (0.5-1.5); Est. Creatinine Clearance* 43.12; Estimated Glomerular Filt Rate 47 ml/min
[2022-10-14 15:12] LABS: Alanine Aminotransferase* 27 U/L (4-50); Alkaline Phosphatase* 132 U/L (40-150); Aspartate Amino Transferase* 27 U/L (12-35); Bilirubin Direct* 0.1 mg/dL (0.0-0.5); Bilirubin Total* 0.6 mg/dL (0.1-1.5); Blood Urea Nitrogen* 20 mg/dL (7-30); Calcium* 9.5 mg/dL (8.4-10.6); Carbon Dioxide* 26 mmol/L (20-32); Glucose* 117 mg/dL (60-115); Lipase* 20 U/L (23-300)
[2022-10-14 15:14] VITALS: PULSE 90; RESP 20; O2SAT 99
[2022-10-14 15:15] LABS: C Reactive Protein* 1.2 mg/dL (0.5-1.0)
[2022-10-14] MEDS: ONDANSETRON 2 MG/ML inj 4 MG IVP (15:41)
[2022-10-14 16:05] LABS: Appearance Urine Clear (Clear); Bilirubin Urine Negative (Negative); Blood Urine 2+ (Negative); Color Urine Yellow (Yellow); Glucose Urine Negative (Negative); Ketones Urine 1+ (Negative); Leukocyte Esterase Urine Negative (Negative); Nitrite Urine Negative (Negative); Protein Urine 1+ (Negative); Urobilinogen Urine 0.2 (0.2-1.0); pH Urine 5.5 (5.0-8.5)
[2022-10-14 16:13] LABS: Mucus Urine Few; Squamous Epithelial Cell Urine Moderate (None-Few); WBC Urine 0-2 (0-5)
[2022-10-14 16:14] LABS: Calcium Oxalate Crystals Urine Moderate
[2022-10-14 16:51] LABS: Lactate Sepsis 2 Hour 1.2 mmol/L (0.5-1.9)
== END 2022-10-14 17:31 | disposition home or self-care (01) ==
PROVIDERS: Emergency Provider Emergency Medicine
DX: N13.2 Hydronephrosis with renal and ureteral calculous obstruction (principal); R59.0 Localized enlarged lymph nodes
CPT/HCPCS: 36415; 74177; 80048; 80076; 81001; 83605; 83690; 85025; 86140; 86850; 86900; 86901; 94761; 96374; 96375; 99284; J2270; J2405; J7120; Q9967